=== PATIENT | female | born 1945 | race Caucasian/White ===

== ENCOUNTER 2016-12-01 15:06 | Emergency (ER) | payer MEDICARE, BC ==
[2016-12-01 15:26] VITALS: BP 179/111
[2016-12-01 15:50] LABS: Urine Bilirubin Negative (NEGATIVE); Urine Blood 25 /ul (NEGATIVE); Urine Ketone Negative (NEGATIVE); Urine Nitrite Negative (NEGATIVE); Urine Protein Negative (NEGATIVE); Urine Specific Gravity >=1.030 SP.GR. (1.005-1.010); Urine Urobilinogen Normal (NORMAL); Urine pH 5.5 pH (5.0-7.0)
[2016-12-01 15:55] LABS: Urine Appearance Clear; Urine Bacteria 2+; Urine Color Yellow; Urine RBC 0-5 /hpf (0-5); Urine WBC 0-5 /hpf (0-5)
[2016-12-01 15:57] LABS: Hematocrit 43.4 % (37.0-47.0); Mean Cell Volume 86.5 fl (78-100); Mean Corpuscular Hemoglobin 27.9 pg (27-31); Mean Corpuscular Hgb Conc 32.3 g/dl (32-36); Neutrophil # 7.3 K/mm3 (1.3-6.0); Neutrophil % 69.2 % (42-75.0); Platelet Count 235 K/mm3 (150-450); Red Blood Count 5.02 M/mm3 (4.2-5.4); Red Cell Distribution Width 13.9 % (11.5-14.0); White Blood Count 10.5 K/mm3 (4.0-10.5)
[2016-12-01] MEDS ORDERED: LIDOCAINE HCL 20 ML UDC PO ONE (16:05)
[2016-12-01] MEDS ORDERED: SUCRALFATE 1 G/10 ML UDC PO ONE (16:05)
[2016-12-01] MEDS ORDERED: MAG HYDROX/ALUMINUM HYD/SIMETH 30 ML UDC PO ONE (16:05)
--- NOTE | 2016-12-01 16:10 | ERNOTE ---
Abdominal HPI - General Chief Complaint: Abdominal Pain Source: patient Exam Limitations: no limitations - Immun/Allergies/Home Medications Immunizatons: IMMUNIZATION HX Immunizations Up to Date Yes History of Influenza Vaccine Yes Hx Pneumococcal Vaccination Yes Allergies/Adverse Reactions: Allergies adhesive tape Allergy (Intermediate, Verified 12/01/16 15:26) Itching celecoxib [From Celebrex] Allergy (Intermediate, Verified 12/01/16 15:26) hives, throat swells naproxen sodium [From Aleve] Allergy (Intermediate, Verified 12/01/16 15:26) hives, throat swells metoclopramide HCl [From Reglan] Allergy (Mild, Verified 12/01/16 15:26) hives, itching omeprazole Allergy (Mild, Verified 12/01/16 15:26) Hives morphine Adverse Reaction (Mild, Verified 12/01/16 15:26) intolerant Home Medications: HOME MEDICATIONS Furosemide [Lasix] 40 mg PO DAILY 04/03/16 [Last Taken 04/03/16 0630] Levothyroxine Sodium [Synthroid] 100 mcg PO DAILY 04/03/16 [Last Taken 04/03/16 0630] Valsartan 320 mg PO DAILY 04/03/16 [Last Taken 04/03/16 0630] Cyanocobalamin (Vitamin B-12) [Vitamin B12] 2,500 mcg PO DAILY 10/25/16 [Last Taken Unknown] Ranitidine HCl [Heartburn Relief] 150 mg PO DAILY 10/25/16 [Last Taken Unknown] Simethicone [Mylicon Chewable Tablets] 80 mg PO QID PRN #30 tab.chew 10/25/16 [ Last Taken Unknown] Acetaminophen/Diphenhydramine [Tylenol Pm Ex-Strength Caplet] 1 each PO HS PRN 12/01/16 [Last Taken Unknown] Beta-Carotene(A) W-C , E/Min [Ocuvite] 1 tab PO 12/01/16 [Last Taken Unknown] Glimepiride [Amaryl] 2 mg PO DAILY 12/01/16 [Last Taken Unknown] Sucralfate [Carafate] 1 gm PO QID #30 tab 12/01/16 [Last Taken Unknown] glipiZIDE [Glucotrol] 5 mg PO BID 12/01/16 [Last Taken Unknown] - History of Present Illness Narrative: Patient has had abdominal pain for 12-14 months. The pain is daily, lasting most of the day and some of the night, is mainly in the epigastric area. She feels it started when she started on diabetic medication (metformin). The medication have been changed multiple times without significant relieve. She has not seen a dynamite packing machine feeder, has never had an EGD, had schreening colonoscopies in the past that have been normal Timing: constant Quality: severe Activities at Onset: none Modifying Factors - (Improves): Absent: breathing, coughing Modifying Factors - (Worsens): Present: other - taking her meds Prior Treatment: Absent: recently seen, currently on antibiotics Review of Systems - Review of Systems Constitutional: Absent: recent illness, fever, weight loss ENT: Absent: nose congestion, sore throat Respiratory: Absent: shortness of breath Cardiology: Absent: chest pain Gastrointestinal/Abdominal: Present: See HPI Genitourinary: Present: no symptoms reported Skin: Absent: rash Neurological: Absent: headache - Patient's Past Medical History Patient History - Medical: Anemia, Diabetes Type 2, GERD, Hypothyroidism, Kidney stone, Obesity, Rheumatoid Arthritis, UTI'S Patient History - Cardiac/Respiratory: Hypertension Patient History - Cancer: No Hx of Cancer Patient History - Surgical Procedures: Cholecystectomy, Colonoscopy, EGD, Total Knee Replacement, Tubal Ligation, Other Patient History - Other: None - Family History Father Family History - Medical: , No pertinent hx Family History - Cardiac/Respiratory: CHF, Pulmonary Embolism, Other Mother Family History - Medical: , Diabetes Type 2, Renal Failure, Other Family History - Cardiac/Respiratory: No pertinent hx Brother Family History - Medical: Diabetes Type 2, Other Family History - Cardiac/Respiratory: Hypertension Sister Family History - Medical: Diabetes Type 2 Family History - Cardiac/Respiratory: Hypertension - Social History Living Situations: spouse Abuse History: No History of abuse Psych History: No pertinent hx Does anyone smoke in the home?: No Alcohol Use: none Drug Use: none - Immunizations Immunizations Up to Date: Yes Hx Pneumococcal Vaccination: Yes History of Influenza Vaccine: Yes Physical Exam - Physical Exam General Appearance: Present: wd/wn, alert, no apparent distress Respiratory: Present: no respiratory distress, normal breath sounds, no accessory muscle use, lungs clear Cardiovascular/Chest: Present: regular rate, rhythm, no murmur Gastrointestinal/Abdominal: Present: normal bowel sounds, nondistended, soft, tenderness - whole upper abdomen, max in epigastric area, other - obese Neurological Exam: Present: alert, oriented, normal mood/affect Skin Exam: Present: normal color, warm/dry ED Progress - Results and Orders Patient's Lab Results:: I have reviewed the patient's lab results. - Vital Signs Patient's Vital Signs:: I have reviewed the patient's vital signs. Vital Signs: Vital Signs 12/01/16 15:21 Pulse Rate 91 Respiratory 16 Rate Blood Pressure 179/111 O2 Sat by Pulse 95 Oximetry - X-Ray X-Ray #1 X-Ray: abdomen - no acute findings Interpretation: Interp. by me - Progress/Reassessment Chief Complaint: Abdominal Pain Progress Note-Subjective: 12/01/16 17:02 patient feeling much better after GI cocktail, discussed results with patient and family, patient is allergic to omeprazole, will start carafate has appointment with Dr Araya in five days Departure - Departure Clinical Impression: Gastritis Qualifiers: Gastritis type: unspecified gastritis Chronicity: unspecified Gastritis bleeding: presence of bleeding unspecified Qualified Code(s): K29.70 - Gastritis , unspecified, without bleeding Disposition: Home self-care Condition: Good Instructions: Gastritis, Adult, [id number] Additional Instructions: follow up with Dr Araya as scheduled next week Referrals: Sapna Araya DO [Primary Care Provider] - Prescriptions: Sucralfate [Carafate] 1 gm PO QID #30 tab
[2016-12-01 16:11] LABS: Albumin * 3.5 gm/dl (3.4-5.0); Anion Gap 8.8 mmol/L (6.8-13.8); BUN/Creatinine Ratio 16.7 (9.0-21.6); Bilirubin, Total 0.5 mg/dL (0.0-1.1); Ca. Corrected For Albumin 9.5 mg/dL (8.4-10.2); Calcium * 9.4 mg/dL (7.9-10.9); Potassium 3.8 mmol/L (3.4-4.6); Total Protein 7.6 gm/dL (6.2-8.2)
== END 2016-12-01 17:09 | disposition home or self-care (01) ==
LOC: ER 15:06
DX: K29.70 Gastritis, unspecified, without bleeding (principal)

== ENCOUNTER 2016-12-18 08:35 | Observation (INO) | payer MEDICARE, BC ==
--- NOTE | 2016-12-18 10:34 | ERNOTE ---
Abdominal HPI - Narrative Date of Service: 12/18/16 - General Chief Complaint: Constipation Time Seen by Provider: 12/18/16 10:08 Source: patient, RN/MD, RN notes reviewed, past records Exam Limitations: other - poor historian - Immun/Allergies/Home Medications Immunizatons: IMMUNIZATION HX Immunizations Up to Date Yes History of Influenza Vaccine Yes Hx Pneumococcal Vaccination Yes Allergies/Adverse Reactions: Allergies adhesive tape Allergy (Intermediate, Verified 12/18/16 09:03) Itching celecoxib [From Celebrex] Allergy (Intermediate, Verified 12/18/16 09:03) hives, throat swells naproxen sodium [From Aleve] Allergy (Intermediate, Verified 12/18/16 09:03) hives, throat swells metoclopramide HCl [From Reglan] Allergy (Mild, Verified 12/18/16 09:03) hives, itching omeprazole Allergy (Mild, Verified 12/18/16 09:03) Hives morphine Adverse Reaction (Mild, Verified 12/18/16 09:03) intolerant Home Medications: HOME MEDICATIONS Furosemide [Lasix] 40 mg PO DAILY 04/03/16 [Last Taken 04/03/16 0630] Levothyroxine Sodium [Synthroid] 100 mcg PO DAILY 04/03/16 [Last Taken 04/03/16 0630] Valsartan 320 mg PO DAILY 04/03/16 [Last Taken 04/03/16 0630] Cyanocobalamin (Vitamin B-12) [Vitamin B12] 2,500 mcg PO DAILY 10/25/16 [Last Taken Unknown] Ranitidine HCl [Heartburn Relief] 150 mg PO DAILY 10/25/16 [Last Taken Unknown] Simethicone [Mylicon Chewable Tablets] 80 mg PO QID PRN #30 tab.chew 10/25/16 [ Last Taken Unknown] Acetaminophen/Diphenhydramine [Tylenol Pm Ex-Strength Caplet] 1 each PO HS PRN 12/01/16 [Last Taken Unknown] Beta-Carotene(A) W-C , E/Min [Ocuvite] 1 tab PO 12/01/16 [Last Taken Unknown] Glimepiride [Amaryl] 2 mg PO DAILY 12/01/16 [Last Taken Unknown] Sucralfate [Carafate] 1 gm PO QID #30 tab 12/01/16 [Last Taken Unknown] - History of Present Illness Narrative: Jayro is a 71 year old female who presents to the ED for constipation. She reports not having a bowel movement for 3 days when she normally has about 3 stools per day. She is taking [place] routinely for pain and has been taking Miralax and Sennacot. She had a liver biopsy 3 days ago for evaluation of possible pancreatic cancer. She reports mild abdominal pain and bloating, but complains mostly of rectal pain. She has been manually disimpacting herself and has removed small, hard chunks of stool. Review of Systems - Review of Systems Constitutional: Present: recent illness, malaise. Absent: fever, chills EYE: Present: no symptoms reported ENT: Present: no symptoms reported Respiratory: Present: shortness of breath. Absent: cough Cardiology: Present: edema. Absent: chest pain Gastrointestinal/Abdominal: Present: nausea, eating less, drinking less. Absent : vomiting Genitourinary: Present: no symptoms reported Musculoskeletal: Present: no symptoms reported Skin: Present: no symptoms reported Neurological: Present: no symptoms reported Endocrine: Present: no symptoms reported Hematologic/Lymphatic: Present: no symptoms reported Psych: Present: no symptoms reported - Patient's Past Medical History Patient History - Medical: Anemia, Diabetes Type 2, GERD, Hypothyroidism, Kidney stone, Obesity, Rheumatoid Arthritis, UTI'S Patient History - Cardiac/Respiratory: Hypertension Patient History - Cancer: No Hx of Cancer Patient History - Surgical Procedures: Cholecystectomy, Colonoscopy, EGD, Total Knee Replacement, Tubal Ligation, Other Patient History - Other: None - Family History Father Family History - Medical: , No pertinent hx Family History - Cardiac/Respiratory: CHF, Pulmonary Embolism, Other Family History - Cancer: No pertinent family hx Mother Family History - Medical: , Diabetes Type 2, Renal Failure, Other Family History - Cardiac/Respiratory: No pertinent hx Family History - Cancer: No pertinent family hx Brother Family History - Medical: Diabetes Type 2, Other Family History - Cardiac/Respiratory: Hypertension Family History - Cancer: No pertinent family hx Sister Family History - Medical: Diabetes Type 2 Family History - Cardiac/Respiratory: Hypertension Family History - Cancer: No pertinent family hx - Social History Living Situations: spouse Abuse History: No History of abuse Psych History: No pertinent hx Does anyone smoke in the home?: No Smoking Status: Never smoker Alcohol Use: none Drug Use: none - Immunizations Immunizations Up to Date: Yes Hx Pneumococcal Vaccination: Yes History of Influenza Vaccine: Yes Physical Exam - Physical Exam General Appearance: Present: alert, mild distress, obese Respiratory: Present: no respiratory distress, normal breath sounds, no accessory muscle use, lungs clear Cardiovascular/Chest: Present: regular rate, rhythm, no murmur, normal peripheral pulses Gastrointestinal/Abdominal: Present: normal bowel sounds, soft, tenderness - mild, diffuse, distended Extremity Exam: Present: non-tender, pedal edema Neurological Exam: Present: alert, oriented, other - depressed appearing. Absent: normal mood/affect Skin Exam: Present: normal color, warm/dry ED Progress - Vital Signs Patient's Vital Signs:: I have reviewed the patient's vital signs. Vital Signs: Vital Signs 12/18/16 08:56 Temperature 36.3 C L Pulse Rate 88 Respiratory 22 H Rate Blood Pressure 196/97 O2 Sat by Pulse 96 Oximetry - Progress/Reassessment Chief Complaint: Constipation Progress:: Unchanged Plan - Plan Plan: Dr. Araya contacted the department as I was entering orders for xray and labs to further eval patient, she wishes to see the patient in the office now, as her pathology results have come back indicating stage 4 cancer that she wants to discuss with the patient. Patient to office by wheelchair. Departure - Departure Clinical Impression: Constipation Qualifiers: Constipation type: drug induced constipation Qualified Code(s): K59.03 - Drug induced constipation Disposition: Other health care facility Condition: Stable Additional Instructions: See Dr. Araya in office now Referrals: Sapna Araya DO [Primary Care Provider] -
[2016-12-18] MEDS ORDERED: HYDROmorphone HCL 1 MG/ML DISP.SYRIN IV PRN (11:36)
[2016-12-18] MEDS: HYDROmorphone HCL 2 MG TABLET PO PRN (12:11)
[2016-12-18] MEDS: NORMAL SALINE 1,000 ML IV PRN ×2 (12:11→20:09)
[2016-12-18] MEDS: POLYETHYLENE GLYCOL 3350 119 GM BTL PO SCH ×2 (12:13→21:34)
[2016-12-18] MEDS: ENOXAPARIN SODIUM 40 MG/0.4 ML SYRG SC SCH (12:14)
[2016-12-18] MEDS: SENNOSIDES/DOCUSATE SODIUM 1 TAB TABLET PO SCH ×2 (12:14→16:55)
[2016-12-18 12:37] LABS: Anion Gap 15.5 mmol/L (6.8-13.8); BUN/Creatinine Ratio 16.9 (9.0-21.6); Calcium * 8.7 mg/dL (7.9-10.9); Carbon Dioxide 25.7 mmol/L (24-32.6); Estimated Creat Clear 53.7; Potassium 4.2 mmol/L (3.4-4.6)
[2016-12-18] MEDS ORDERED: ALPRAZolam 1 MG TABLET PO PRN (17:00)
[2016-12-18] MEDS ORDERED: ONDANSETRON 4 MG TAB.RAPDIS PO PRN (17:00)
[2016-12-18] MEDS ORDERED: SIMETHICONE 80 MG TAB.CHEW PO PRN (17:00)
--- NOTE | 2016-12-18 17:16 | HP ---
Chief Complaint - Chief Complaint Date of Service: 12/18/16 Time of Service: 11:00 Chief Complaint: Abdominal pain, nausea, abdominal distension History of Present Illness: The patient presented to the ED for evaluation of severe abdominal pain with her last BM being 4-5 days prior. She was found to have likely metastatic cancer on recent CT scan and underwent a liver biopsy and these results were discussed with the patient and her family today prior to admission. I spoke with Dr. Knight, our pathologist, who stated that the biopsy was consistent with adenocarcinoma and further testing was being done to determine the primary site but it is felt to likely be pancreatic given her CT scan findings with mets to the liver and lungs. The patient will admitted from the office for observation overnight and for aggressive bowel regimen. - Patient's Past Medical History Patient History - Medical: Anemia, Anxiety, Arthritis, Diabetes Type 2, GERD, Hypothyroidism, Kidney stone, Obesity, Rheumatoid Arthritis, UTI'S Patient History - Cardiac/Respiratory: Hypertension, Sleep Apnea Patient History - Cancer: No Hx of Cancer, Metastatic, Other - Adenocarcinoma Patient History - Surgical Procedures: Cholecystectomy, Colonoscopy, EGD, Total Knee Replacement, Tubal Ligation, Other Patient History - Other: None - Family History Father Family History - Medical: , No pertinent hx Family History - Cardiac/Respiratory: CHF, Pulmonary Embolism, Other Family History - Cancer: No pertinent family hx Mother Family History - Medical: , Diabetes Type 2, Renal Failure, Other Family History - Cardiac/Respiratory: No pertinent hx Family History - Cancer: No pertinent family hx Brother Family History - Medical: Diabetes Type 2, Other Family History - Cardiac/Respiratory: Hypertension Family History - Cancer: No pertinent family hx Sister Family History - Medical: Diabetes Type 2 Family History - Cardiac/Respiratory: Hypertension Family History - Cancer: No pertinent family hx - Social History Living Situations: spouse Abuse History: No History of abuse Psych History: Hx of Anxiety Does anyone smoke in the home?: No Smoking Status: Never smoker Have you smoked in the past 12 months: No Do you dip or chew tobacco: No Alcohol Use: none Drug Use: none - Immunizations Immunizations Up to Date: Yes Hx Pneumococcal Vaccination: Yes History of Influenza Vaccine: Yes Review Of Systems (GEN) - Review of Systems Generalized/Overall Review: Present: Weakness, Fatigue. Absent: Chills, Fever EENTM: Present: No Symptoms Reported Respiratory: Present: No Symptoms Reported Cardiac: Present: No Symptoms Reported Abdominal: Present: Nausea, Vomiting, Abdominal Pain, Constipation. Absent: Hematemesis, Diarrhea, Melena, Bright blood from rectum Genitourinary: Present: No Symptoms Reported Musculoskeletal: Present: No Symptoms Reported Neurological: Present: No Symptoms Reported Skin: Present: No Symptoms Reported Endocrine: Present: No Symptoms Reported Misc: All systems neg except as marked Allergies/Adverse Reactions: Allergies Allergy/AdvReac Type Severity Reaction Status Date / Time adhesive tape Allergy Intermediate Itching Verified 12/18/16 09:03 celecoxib [From Celebrex] Allergy Intermediate hives, Verified 12/18/16 09:03 throat swells naproxen sodium [From Aleve] Allergy Intermediate hives, Verified 12/18/16 09:03 throat swells metoclopramide HCl Allergy Mild hives, Verified 12/18/16 09:03 [From Reglan] itching omeprazole Allergy Mild Hives Verified 12/18/16 09:03 morphine AdvReac Mild intolerant Verified 12/18/16 09:03 Home Medications: HOME MEDICATIONS Furosemide [Lasix] 40 mg PO DAILY 04/03/16 [Last Taken 04/03/16 0630] Levothyroxine Sodium [Synthroid] 100 mcg PO DAILY 04/03/16 [Last Taken 04/03/16 0630] Simethicone [Mylicon Chewable Tablets] 80 mg PO QID PRN #30 tab.chew 10/25/16 [ Last Taken Unknown] Sucralfate [Carafate] 1 gm PO QID #30 tab 12/01/16 [Last Taken Unknown] ALPRAZolam [Xanax] 1 mg PO TID PRN 12/18/16 [Last Taken Unknown] Hydrocodone/Acetaminophen [[place] 5-325 Tablet] 2 tab PO Q4H PRN 12/18/16 [Last Taken Unknown] Valsartan 320 mg PO DAILY 12/18/16 [Last Taken Unknown] Enoxaparin Sodium [Lovenox] 110 mg SC Q12H #30 disp.syrin 12/19/16 [Last Taken Unknown] Enoxaparin Sodium [Lovenox] 110 mg SC Q12H #30 disp.syrin 12/19/16 [Last Taken Unknown] HYDROmorphone HCL [Dilaudid] 1 mg PO Q1H PRN #75 tablet 12/19/16 [Last Taken Unknown] Ondansetron [Zofran Odt] 4 mg PO Q4H PRN #75 tab.rapdis 12/19/16 [Last Taken Unknown] Sennosides/Docusate Sodium [Senokot-S] 1 tab PO Q4H PRN #75 tablet 12/19/16 [ Last Taken Unknown] Exam - Exam Vital Signs: Vital Signs - Last Taken Temp 36.9 C 12/18/16 16:08 Pulse 83 12/18/16 16:08 Resp 20 12/18/16 16:08 BP 159/76 12/18/16 16:08 Pulse Ox 93 12/18/16 16:08 Constitutional: Present: Alert, Oriented x3, Cooperative, Well developed, Well nourished, No distress, Obese ENT Exam: Present: normal ENT inspection, hearing grossly normal, moist mucous membranes Eye Exam: bilateral eye: normal inspection, PERRL, EOMI Neck: Present: non-tender, supple, normal inspection Respiratory: Present: lungs clear, normal breath sounds, no respiratory distress , no accessory muscle use Cardiovascular/Chest: Present: regular rate, rhythm, no JVD, no murmur, edema - Trace bilateral LE edema Abdomen: Present: soft, no rebound tenderness, obese, tender, guarding - voluntary, other - Hypoactived bowel sounds, distended. Absent: rigidity, rebound tenderness Extremity: Present: normal range of motion, lower extremity edema Skin Exam: Present: normal color, warm/dry Neurologic: Present: no motor/sensory deficits, alert, normal mood/affect, oriented x 3 Appearance: Present: appropriate appearance, appropriate insight, neat, no memory impairment Eye contact: Present: cooperative, good eye contact, normal speech Thoughts: Present: normal thought pattern, no apparent hallucination Diagnostic Studies: Abnormal Lab Results 12/18/16 Range/Units 12:06 Anion Gap 15.5 H (6.8-13.8) mmol/L Random Glucose 189 H (70-110) mg/dL Laboratory Results Sodium 141 mmol/L (132-142) 12/18/16 12:06 Plasma Sodium 142 mmol/L (130-142) 12/18/16 12:06 Potassium 4.2 mmol/L (3.4-4.6) 12/18/16 12:06 Chloride 104 mmol/L (97-106) 12/18/16 12:06 Carbon Dioxide 25.7 mmol/L (24-32.6) 12/18/16 12:06 Anion Gap 15.5 mmol/L (6.8-13.8) H 12/18/16 12:06 BUN 15 mg/dL (3-23) 12/18/16 12:06 Creatinine 0.89 mg/dL (0.4-1.4) 12/18/16 12:06 Est GFR (Non-Af Amer) 67 mL/min (60-130) 12/18/16 12:06 BUN/Creatinine Ratio 16.9 (9.0-21.6) 12/18/16 12:06 Random Glucose 189 mg/dL (70-110) H 12/18/16 12:06 Calcium 8.7 mg/dL (7.9-10.9) 12/18/16 12:06 Assessment/Plan - Narrative Narrative: Admit to observation. Fleets enemas until clear. Pain control PRN. IVF for hydration. Diet as tolerated. Plan to discharge home in AM as long as patient has had a BM and her pain is improved. Patient likely going to pursue hospice in the near future. - Assessment/Plan (1) Obstipation Problem: Acute (2) Abdominal pain Problem: Acute (3) Stage IV adenocarcinoma of pancreas Problem: Suspected
[2016-12-18] MEDS: SUCRALFATE 1 G TABLET PO SCH ×2 (19:05→21:37)
[2016-12-19] MEDS: HYDROmorphone HCL 2 MG TABLET PO PRN ×4 (01:00→13:26)
[2016-12-19] MEDS: NORMAL SALINE 1,000 ML IV PRN ×2 (03:28→10:51)
[2016-12-19] MEDS ORDERED: LEVOTHYROXINE SODIUM 100 MCG TABLET PO SCH (07:00)
[2016-12-19] MEDS: SUCRALFATE 1 G TABLET PO SCH ×2 (08:52→12:17)
[2016-12-19] MEDS: SENNOSIDES/DOCUSATE SODIUM 1 TAB TABLET PO SCH ×3 (08:53→16:28)
[2016-12-19] MEDS: POLYETHYLENE GLYCOL 3350 119 GM BTL PO SCH (08:53)
[2016-12-19] MEDS ORDERED: LOSARTAN POTASSIUM 50 MG TABLET PO SCH (09:00)
[2016-12-19] MEDS: HYDROmorphone HCL 1 MG/ML DISP.SYRIN IV PRN ×2 (10:50→12:51)
[2016-12-19] MEDS: ENOXAPARIN SODIUM 40 MG/0.4 ML SYRG SC SCH (10:52)
[2016-12-19] MEDS ORDERED: ENOXAPARIN SODIUM 40 MG, ENOXAPARIN SODIUM 30 MG SC ONE ×2 (11:45)
[2016-12-19] MEDS ORDERED: ENOXAPARIN SODIUM 40 MG/0.4 ML SYRG SC SCH (11:45)
[2016-12-19] MEDS ORDERED: ONDANSETRON HCL/PF 2 MG/ML VIAL IV ONE (14:39)
[2016-12-19 15:30] VITALS: BP 155/74
--- NOTE | 2016-12-19 15:51 | DS ---
(1) Obstipation Problem: Acute (2) Abdominal pain Problem: Acute (3) Stage IV adenocarcinoma of pancreas Problem: Suspected (4) Deep vein thrombosis (DVT) of right lower extremity Problem: Acute Description of Stay: ADMISSION DATE: 12.18.2016 DISCHARGE DATE: 12.19.2016 ADMISSION HPI: The patient presented to the ED for evaluation of severe abdominal pain with her last BM being 4-5 days prior. She was found to have likely metastatic cancer on recent CT scan and underwent a liver biopsy and these results were discussed with the patient and her family today prior to admission. I spoke with Dr. Knight, our pathologist, who stated that the biopsy was consistent with adenocarcinoma and further testing was being done to determine the primary site but it is felt to likely be pancreatic given her CT scan findings with mets to the liver and lungs. The patient will admitted from the office for observation overnight and for aggressive bowel regimen. HOSPITAL COURSE: Patient admitted and started on an aggressive bowel regimen and without a couple hours she had a good BM. By the time of discharge the following day, she had had multiple BMs and her abdominal distension and pain had improved markedly. The AM of 12.19.2016, the patient mentioned to me that she had some right LE discomfort but didnt think it necessary to mention this before because she stated it wasnt that bad. However, on exam, she had palpable cords in her right calf. Duplex ultrasound revealed extensive DVT. She was started on therapeutic Lovenox mg/kg BID as this is the most appropriate treatment for VTE in patient with active cancer. The patient was discharged home in stable condition. She and her family will follow-up with me in clinic later this week to discuss further plan of care including likely hospice. Procedures Performed: none Discharge Disposition: Home self care Disposition: Home self-care Condition: Fair Discharge Activity: Activity as tolerated Discharge Diet: General/regular food Referrals: Sapna Araya DO [Primary Care Provider] - Problem Oriented Discharge Instructions to Patient/Family: Constipation, Adult , [id number], Pancreatic Cancer Prescriptions (Any new or edited meds): Enoxaparin Sodium [Lovenox] 110 mg SC Q12H #30 disp.syrin Enoxaparin Sodium [Lovenox] 110 mg SC Q12H #30 disp.syrin HYDROmorphone HCL [Dilaudid] 1 mg PO Q1H PRN #75 tablet PRN Reason: Severe Pain Ondansetron [Zofran Odt] 4 mg PO Q4H PRN #75 tab.rapdis PRN Reason: Nausea And Vomiting Sennosides/Docusate Sodium [Senokot-S] 1 tab PO Q4H PRN #75 tablet PRN Reason: Constipation Complete Home Medications List: Complete Home Medication List: Furosemide [Lasix] 40 mg PO DAILY 04/03/16 Levothyroxine Sodium [Synthroid] 100 mcg PO DAILY 04/03/16 Simethicone [Mylicon Chewable Tablets] 80 mg PO QID PRN #30 tab.chew 10/25/16 Sucralfate [Carafate] 1 gm PO QID #30 tab 12/01/16 ALPRAZolam [Xanax] 1 mg PO TID PRN 12/18/16 Hydrocodone/Acetaminophen [[place] 5-325 Tablet] 2 tab PO Q4H PRN 12/18/16 Valsartan 320 mg PO DAILY 12/18/16 Enoxaparin Sodium [Lovenox] 110 mg SC Q12H #30 disp.syrin 12/19/16 Enoxaparin Sodium [Lovenox] 110 mg SC Q12H #30 disp.syrin 12/19/16 HYDROmorphone HCL [Dilaudid] 1 mg PO Q1H PRN #75 tablet 12/19/16 Ondansetron [Zofran Odt] 4 mg PO Q4H PRN #75 tab.rapdis 12/19/16 Sennosides/Docusate Sodium [Senokot-S] 1 tab PO Q4H PRN #75 tablet 12/19/16
[2016-12-19] MEDS ORDERED: PROCHLORPERAZINE EDISYLATE 5 MG/ML VIAL IV STA (16:17)
[2016-12-19] MEDS ORDERED: ENOXAPARIN SODIUM 80 MG, ENOXAPARIN SODIUM 30 MG SC SCH ×2 (23:45)
== END 2016-12-19 17:00 | disposition home or self-care (01) ==
LOC: ER 08:35 → INTOOBSV 11:22 → MS 11:22
PROVIDERS: ADMIT Internal Medicine; ATTEND Internal Medicine
DX: M79.661 Pain in right lower leg (principal); I82.4Z1 Acute embolism and thrombosis of unspecified deep veins of right distal lower extremity; C78.7 Secondary malignant neoplasm of liver and intrahepatic bile duct; C78.00 Secondary malignant neoplasm of unspecified lung
CPT/HCPCS: 36415; 80048; 93971; 96372; 96374; 96375; 99281; G0378

== ENCOUNTER 2017-01-14 16:10 | Inpatient (IN) | payer OTHER, MEDICARE, BC ==
[2017-01-14] MEDS ORDERED: POLYVINYL ALCOHOL 150 DROP BTL EACHEYE PRN (16:30)
[2017-01-14] MEDS ORDERED: PROCHLORPERAZINE EDISYLATE 5 MG/ML VIAL IV PRN (16:30)
[2017-01-14] MEDS ORDERED: ONDANSETRON HCL/PF 2 MG/ML VIAL IV PRN (16:30)
[2017-01-14] MEDS ORDERED: ALBUTEROL SULFATE/IPRATROPIUM 3 ML NEBU IH PRN (16:30)
[2017-01-14] MEDS ORDERED: ATROPINE SULFATE 150 DROP BTL SL PRN (16:30)
[2017-01-14] MEDS ORDERED: HYDROmorphone HCL IN 0.9% NACL 50 ML CARTRIDGE IV PRN (16:35)
[2017-01-14] MEDS: LORazepam 2 MG/ML DISP.SYRIN IV PRN ×3 (17:41→21:52)
[2017-01-15] MEDS: LORazepam 2 MG/ML DISP.SYRIN IV PRN ×10 (00:05→22:04)
--- NOTE | 2017-01-15 00:36 | HP ---
Chief Complaint - Chief Complaint Date of Service: 01/14/17 Time of Service: 19:00 Chief Complaint: stage 4 mets pancreatic cancer, comfort care History of Present Illness: 71 years old female adm to hospital for comfort care from home, per family pt last wish was not to at home. She was recently diagnosed with stage 4 pancreatic cancer with mets to lungs and liver. She opt for no further treatment and wishes to spend her time with family and friends. PMH significant for Liver lesions, kidney stones, GI bleeding, recurrent UTI, liver and lungs adenocarcinoma. Anticipate having hospice consultation. - Patient's Past Medical History Patient History - Medical: Diabetes Type 2, UTI'S, Other - liver lesions, kidney stones Patient History - Cardiac/Respiratory: Hypertension, Sleep Apnea Patient History - Cancer: Liver, Lung, Pancreatic, Metastatic, Other - stage4 mets pancreatic cancer, met to lungs liver. Patient History - Surgical Procedures: Back Surgery, Colonoscopy, Total Knee Replacement, Other - laser lithotripsy Patient History - Other: None - Family History Father Family History - Medical: , No pertinent hx Family History - Cardiac/Respiratory: CHF, Pulmonary Embolism, Other Family History - Cancer: No pertinent family hx Mother Family History - Medical: , Diabetes Type 2, Renal Failure, Other Family History - Cardiac/Respiratory: No pertinent hx Family History - Cancer: No pertinent family hx Brother Family History - Medical: Diabetes Type 2, Other Family History - Cardiac/Respiratory: Hypertension Family History - Cancer: No pertinent family hx Sister Family History - Medical: Diabetes Type 2 Family History - Cardiac/Respiratory: Hypertension Family History - Cancer: No pertinent family hx - Social History Living Situations: spouse Abuse History: No History of abuse Psych History: Hx of Anxiety Does anyone smoke in the home?: No Smoking Status: Never smoker Have you smoked in the past 12 months: No Alcohol Use: none Drug Use: none - Immunizations Immunizations Up to Date: Yes Hx Pneumococcal Vaccination: Yes History of Influenza Vaccine: Yes Review Of Systems (GEN) - Review of Systems Additional Comments: unable to provide information per pt condition. Immunizations: IMMUNIZATION HX Immunizations Up to Date Yes History of Influenza Vaccine Yes Hx Pneumococcal Vaccination Yes Allergies/Adverse Reactions: Allergies Allergy/AdvReac Type Severity Reaction Status Date / Time adhesive tape Allergy Intermediate Itching Verified 01/14/17 17:05 celecoxib [From Celebrex] Allergy Intermediate hives, Verified 01/14/17 17:05 throat swells naproxen sodium [From Aleve] Allergy Intermediate hives, Verified 01/14/17 17:05 throat swells metoclopramide HCl Allergy Mild hives, Verified 01/14/17 17:05 [From Reglan] itching omeprazole Allergy Mild Hives Verified 01/14/17 17:05 morphine AdvReac Mild intolerant Verified 01/14/17 17:05 Home Medications: HOME MEDICATIONS Furosemide [Lasix] 40 mg PO DAILY 04/03/16 [Last Taken 04/03/16 0630] Levothyroxine Sodium [Synthroid] 100 mcg PO DAILY 04/03/16 [Last Taken 04/03/1630] Simethicone [Mylicon Chewable Tablets] 80 mg PO QID PRN #30 tab.chew 10/25/16 [ Last Taken Unknown] Sucralfate [Carafate] 1 gm PO QID #30 tab 12/01/16 [Last Taken Unknown] ALPRAZolam [Xanax] 1 mg PO TID PRN 12/18/16 [Last Taken Unknown] Hydrocodone/Acetaminophen [[place] 5-325 Tablet] 2 tab PO Q4H PRN 12/18/16 [Last Taken Unknown] Valsartan 320 mg PO DAILY 12/18/16 [Last Taken Unknown] Enoxaparin Sodium [Lovenox] 110 mg SC Q12H #30 disp.syrin 12/19/16 [Last Taken Unknown] Enoxaparin Sodium [Lovenox] 110 mg SC Q12H #30 disp.syrin 12/19/16 [Last Taken Unknown] HYDROmorphone HCL [Dilaudid] 1 mg PO Q1H PRN #75 tablet 12/19/16 [Last Taken Unknown] Ondansetron [Zofran Odt] 4 mg PO Q4H PRN #75 tab.rapdis 12/19/16 [Last Taken Unknown] Sennosides/Docusate Sodium [Senokot-S] 1 tab PO Q4H PRN #75 tablet 12/19/16 [ Last Taken Unknown] Exam - Exam Vital Signs: Vital Signs - Last Taken Temp 36.7 C 12/19/16 15:28 Pulse Resp BP 155/74 02/21/17 15:28 Pulse Ox Constitutional: Present: No distress ENT Exam: Present: dry mucous membranes Neck: Present: limited range of motion Breasts: Present: Exam deferred Respiratory: Present: decreased breath sounds, expiration (prolonged) Cardiovascular/Chest: Present: edema - BLle and BL upper Peripheral Pulses: dorsalis-pedis (R): 1+, dorsalis-pedis (L): 1+ Abdomen: Present: soft, nontender, hypoactive /Rectal: Present: Other - madden Extremity: Present: pedal edema, slow capillary refill, swelling Neurologic: Present: other - obtunded Assessment/Plan - Narrative Narrative: stage IV adenocarcinoma of the pancrease comfort care Hospice supplemented oxygen heel and elbow protector Code status : DNR - Assessment/Plan (1) Stage IV adenocarcinoma of pancreas Problem: Acute
[2017-01-16] MEDS: LORazepam 2 MG/ML DISP.SYRIN IV PRN ×5 (00:24→09:33)
[2017-01-16 01:23] VITALS: BP 70/35
[2017-01-16] MEDS ORDERED: LORazepam 2 MG/ML DISP.SYRIN IV PRN (09:48)
[2017-01-16] MEDS ORDERED: HYDROmorphone HCL 1 MG/ML DISP.SYRIN IV PRN (09:49)
[2017-01-16] MEDS ORDERED: fentaNYL 50 MCG PATCH.TD72 TD SCH (10:00)
--- NOTE | 2017-01-16 10:01 | PN ---
Subjective - Date and Time Seen Date: 01/16/17 Time: 09:50 Subjective Narrative: pt comfort cares. nurse report increased rate of breathing. dilaudid quantitative associate currently controlled by replanter. also have ativan iv every 2 hours. Objective Objective Narrative: unable to obtain ROS due to pt's condition - Vitals Vitals: Last Vital Signs Temp 36.7 C 01/16/17 01:22 Pulse 81 01/16/17 01:22 Resp 12 01/16/17 01:22 BP 70/35 01/16/17 01:22 Pulse Ox 86 L 01/16/17 01:22 - Exam Constitutional: Present: Moderate distress - unresponsive, respiratory distress Neck: Present: supple Breasts: Present: Exam deferred Respiratory: Present: respiratory distress, decreased breath sounds Cardiovascular/Chest: Present: regular rate, rhythm Abdomen: Present: soft /Rectal: Present: Exam deferred Extremity: Present: other - pale, non-mobile Skin Exam: Present: cool/dry, pallor Neurologic: Present: other - unresponsive Assessment/Plan Plan Narrative: will add a fentanyl patch for additional pain management. will also order IV push dilaudid for breakthrough pain not controlled by dilaudid quantitative associate. will also order additional prn iv ativan. comfort given to family. - Problems/Diagnosis (1) Comfort measures only status Problem: Acute
[2017-01-16] MEDS: LORazepam 2 MG/ML DISP.SYRIN IV SCH ×10 (10:26→19:48)
--- NOTE | 2017-01-16 21:16 | DS ---
Discharge Summary - Provider Primary Care Provider: Sapna Araya Admitting Clinician: Sapna Araya Attending Physician on Admission: Sapna Araya - Date and Time Date of : 01/16/17 Time of : 20:15 - Diagnosis/Cause of (1) Stage IV adenocarcinoma of pancreas Problems: Acute - Summary Details (narrative): Mrs. López was admitted on 01/14/17 to the [facility] due to a known history of Stage IV Adenocarcinoma of the Pancreas, with mets. Per pt wishes, she wanted to be admitted to hospital for comfort cares as she did not want to pass away at home. Pt had declined further medical treatment and wanted to spend her final days with family. determined to be imminent and end of life was expected to occur in 24-48 hours after admission to the hospital. She was treated according to the Comfort Cares protocol. Pt finally on 01/16/17. On exam, no heart sounds or breath sounds after 1 minute of Ausculation. Pupils were fixed and dilated without Pupillary light reflex. Estimated TOD was 20.15. Most family members present at bedside and all understood that was expected. I offered condolences to them. Procedures Performed: none - Additional Data Confirmation of as documented by pronouncing clinician: no pulse, no respirations, no heart sounds, pupils fixed and dilated Family: at bedside Additional persons at bedside: other - Hospice Nurse Attending/PCP notified: Yes Attending physician: Sapna Araya Was code activated: No Autopsy requested: No Refractory Mixer notified: No Organ Bank notified: Yes Advance Directives: Yes Hospice patient: Yes
== END 2017-01-16 20:04 | disposition expired | DRG 436 ==
LOC: MS 16:10
PROVIDERS: ADMIT Internal Medicine; ATTEND Internal Medicine
DX: C25.9 Malignant neoplasm of pancreas, unspecified (principal); C78.7 Secondary malignant neoplasm of liver and intrahepatic bile duct; C78.00 Secondary malignant neoplasm of unspecified lung; I10 Essential (primary) hypertension; E11.9 Type 2 diabetes mellitus without complications; Z51.5 Encounter for palliative care; Z87.440 Personal history of urinary (tract) infections